=== PATIENT | male | born 1955 | race Two or more races ===

== ENCOUNTER 2022-09-15 03:16 | Emergency (ER) | payer MEDICARE, BC ==
[~2022-09-15] VITALS: Ht 170.2 cm; Wt 63.5 kg
--- NOTE | 2022-09-15 03:25 | NUR ---
[facility] FROM [facility] FOR TROUBLE BREATHING DUE TO POSSIBLE REACTION TO [place]. AAOX4. VITALS CHECKED. ATTACHED TO THE MONITOR.
[2022-09-15] MEDS ORDERED: ALBUTEROL FS 2.5 MG/3 ML VIAL.NEB NEB ONE (03:30)
--- NOTE | 2022-09-15 03:40 | NUR ---
EKG DONE BY EMT.
--- NOTE | 2022-09-15 03:55 | NUR ---
BLOOD DRAWN AND SENT TO LAB.
[2022-09-15] MEDS ORDERED: ALBUTEROL FS 2.5 MG/3 ML VIAL.NEB ONE (03:57)
--- NOTE | 2022-09-15 04:10 | NUR ---
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
[2022-09-15 04:13] LABS: BASOPHILS % (AUTO) 0.6 % (0.0-2.0); EOSINOPHILS % (AUTO) 6.5 % (0.0-6.0); HEMATOCRIT 39 % (39-51); HEMOGLOBIN 12.2 g/dL (13.5-17.5); LYMPHOCYTES % (AUTO) 13.7 % (20.0-44.0); MEAN CORPUSCULAR HGB CONC 32 g/dl (31.0-36.0); MEAN CORPUSCULAR VOLUME 84 fL (80-96); MONOCYTES # (AUTO) 0.6 K/uL (0.1-1.30); NEUTROPHILS # (AUTO) 5.2 K/uL (1.8-8.9); NEUTROPHILS % (AUTO) 71.2 % (43.0-81.0); PLATELET COUNT (AUTO) 185 K/uL (150-450); RED BLOOD CELL COUNT(AUTO) 4.61 MIL/uL (4.5-6.0); WHITE BLOOD COUNT (AUTO) 7.3 K/uL (4.3-11.0)
[2022-09-15 04:23] LABS: CALCIUM, SERUM 8.6 mg/dL (8.5-10.1); CARBON DIOXIDE 22 mmol/L (21-32); CHLORIDE 106 mmol/L (98-107); CREATININE 2.3 mg/dL (0.6-1.3); GLUCOSE 167 mg/dL (74-106); POTASSIUM 4.2 mmol/L (3.5-5.1); SODIUM SERUM 139 mmol/L (136-145); UREA NITROGEN, BLOOD 26 mg/dL (7-18)
--- NOTE | 2022-09-15 05:28 | NUR ---
[facility] ETA: 60-75 MIN REPORT GIVEN TO GUERDA AT [facility]
--- NOTE | 2022-09-15 07:53 | NUR ---
EMT AT BEDSIDE FOR TRANSPORT.
[2022-09-15 07:54] VITALS: BP 120/61
== END 2022-09-15 07:57 ==
LOC: ER 03:19
DX: R06.00 Dyspnea, unspecified (principal); Z88.1 Allergy status to other antibiotic agents; Z88.5 Allergy status to narcotic agent
CPT/HCPCS: 36415; 71045-TC; 80048-TC; 84484-TC; 85025-TC